=== PATIENT | female | born 1985 | race Caucasian/White ===

== ENCOUNTER 2017-05-21 11:11 | Emergency (ER) | payer OTHER ==
[~2017-05-21] VITALS: Ht 170.2 cm; Wt 124.7 kg
--- OUTSIDE RECORDS SUMMARY | 2017-05-21 11:16 | External Medical Summary Rpt ---
Author Author [employer] Organization [employer] Address Unknown Phone Unavailable Purpose Continuity of Care Document - through 2016
--- OUTSIDE RECORDS SUMMARY | 2017-05-21 11:16 | External Medical Summary Rpt ---
Author Author [facility] Address Unknown Phone [email or web address] Purpose Continuity of Care Document - through 2016
--- OUTSIDE RECORDS SUMMARY | 2017-05-21 11:16 | External Medical Summary Rpt ---
Author Author [facility] Address Unknown Phone Purpose Continuity of Care Document - through 2016
--- OUTSIDE RECORDS SUMMARY | 2017-05-21 11:17 | External Medical Summary Rpt ---
Author Author [facility] Garcia, [facility] [employer] Organization [employer] Address Unknown Phone Unavailable
--- OUTSIDE RECORDS SUMMARY | 2017-05-21 11:17 | External Medical Summary Rpt ---
Author Author , [facility] Address Unknown Phone [email or web address] Immunization Name Date Rout CVX Reac Dose Comm Prov Is Faci e tion ent ider Refu lity Give sed n Tdap 09-2 115 999 Hist H201 No H201 , 2-20 oric Adso 10 al rbed Info rmat ion - Sour ce Unsp ecif ied
--- OUTSIDE RECORDS SUMMARY | 2017-05-21 11:17 | External Medical Summary Rpt ---
Author Author , [facility] Address Unknown Phone [email or web address] Immunization Name Date Rout CVX Reac Dose Comm Prov Is Faci e tion ent ider Refu lity Give sed n Tdap 09-2 115 999 Hist H201 No H201 , 2-20 oric Adso 10 al rbed Info rmat ion - Sour ce Unsp ecif ied
--- NOTE | 2017-05-21 11:40 | Urgent Treatment Center Report ---
History of Present Issue Date/Time Seen by Provider 05/21/17 1122 Visit Reason Pt arrived:Walked Presenting Problem:PT C/O STOMACH CRAMPS, DIARRHEA FOR 4 DAYS. PT ADVISES SHE VOMITED THE FIRST DAY BUT HAS NOT VOMITED SINCE Location if Accident: Onset of symptoms date/time:/ or onset unknown for:MEDICAL HX UNKNOWN Have you (or family members/close friends) recently traveled outside the [place]? N If Yes, where/when: Have you had exposure to infectious disease within the past month? TB? Other? Specify: Source patient, RN notes reviewed Exam Limitations no limitations Comment Stomach cramps X 4 days. Has had watery diarrhea every 30 minutes. Vomited on the first day, but not since. Intermittent fever. No bloody stools. No family or personal history of IBD. No known contaminated food/water. No exposure to C diff ALLERGIES Coded Allergies: No Known Allergies (05/21/17) Home Medications Reported Medications No Known Home Medications History Medical History General CAD? No Angina: No SC: No Hypertension? No Hyperlipidemia? No CHF? No DVT? No PE? No COPD? No Asthma? No Anemia? No GERD? No Gastric ulcers? No GI Bleed? No Hernia? No Thyroid Problems? No Hypothyroidism? No CVA? No Seizures? No Diabetes? No Renal Insuffiency? No UTI? No Stones? No BPH? No GB Disease: No Nephritic Syndrome? No Asplenia? No Hepatitis? No Sickle Cell Disease? No Arthritis? No Migraines? No Cataracts? No Glaucoma? No MRSA? No HIV? No TB? No Anxiety? No Depression? No Cancer? No More? No Immunization HX DT/Tetanus 1-4 Years Ago Surgical Hx Previous Surgery?Y WISDOM Social History Smoking Hx Smoker: Never Smoker Tobacco: No Alcohol Alcohol: No Review of Systems All Other Systems Reviewed and Negative Gastrointestinal diarrhea, nausea, vomiting Physical Exam Vital Signs Vital Signs Date Time Temp Pulse Resp B/P Pulse O2 O2 Flow FiO2 Ox Delivery Rate 05/21 1119 97.8 115 16 151/91 98 General Appearance normal appearance, no apparent distress Ear, Nose, Throat hearing grossly normal, normal ENT inspection Respiratory Status No: respiratory distress, trachea midline, chest symmetrical. Lung Sounds bilateral: normal breath sounds, lungs clear. Cardiovascular normal exam, regular rate/rhythm, no peripheral edema, no gallop, no JVD, no murmur, no rub Gastrointestinal normal bowel sounds, normal exam, non tender Extremities non-tender, normal range of motion, normal inspection, normal capillary refill Neurologic alert, normal exam, oriented x 3 Mental status normal mood/affect Medical Decision Making LABS/Meds/Orders Pt receiving controlled substance in ED? No Results/Orders Laboratory Tests 05/21/17 1203: Sodium 138, Potassium 3.9, Chloride 103, Carbon Dioxide 24, BUN 12, Creatinine 1.2 H, Estimated Creat Clear 136, Estimated GFR (MDRD) 53 L, Glucose 133 H, Calcium 9.0, Total Bilirubin 0.7, AST 17, ALT 28, Alkaline Phosphatase 116, Total Protein 7.8, Albumin 4.0, Globulin 3.8 H, Albumin/Globulin Ratio 1.1 Current Medication Orders Sig/Dusty Start time Last Medication Dose Route Stop Time Status Admin Acetaminophen 650 MG ONCE ONE 05/21 1300 AC PO 05/21 1301 Acetaminophen 500 MG ONCE ONE 05/21 1245 CAN PO 05/21 1246 Orders Procedure Date/time Status CHEM 12 PROFILE 05/21 1200 Complete Unable to provide stool for diarrhe panel - given order for outpatient (LEXI RAMIREZ) Departure Departure Time of Disposition 1250 Disposition DC Home or Self Care(routine) Clinical Impression Primary Impression: Diarrhea Qualifiers: Diarrhea type: unspecified type Qualified Code: R19.7 - Diarrhea, unspecified Condition STABLE Referrals Rajeev Peres MD (Family) Patient Instructions DI for Diarrhea and Traveler's Diarrhea -- Adult Additional Instructions Clear liquids, return stool sample for diarrhea panel Discharge Counseling Counseled pt/family regarding diagnosis, test results, medications/RX, home care, follow up needs Prescriptions Current Visit Scripts No Known Home Medications at 1251
[2017-05-21 12:51] VITALS: BP 151/91
[2017-05-21 14:38] LABS: AEROMONAS NOT DETECTED (NOT DETECTE); ASTROVIRUS NOT DETECTED (NOT DETECTE); CYCLOSPORA CAYETANENSIS NOT DETECTED (NOT DETECTE); E COLI O157 NOT DETECTED (NOT DETECTE); ENTEROAGGREGATIVE E COLI NOT DETECTED (NOT DETECTE); ENTEROPATHOGENIC E COLI NOT DETECTED (NOT DETECTE); ENTEROTOXIGENIC E COLI NOT DETECTED (NOT DETECTE); NOROVIRUS NOT DETECTED (NOT DETECTE); SAPOVIRUS NOT DETECTED (NOT DETECTE); SHIGA-LIKE TOXIN PROD. E COLI NOT DETECTED (NOT DETECTE); SHIGELLA/ENTEROINVASIVE E COLI NOT DETECTED (NOT DETECTE); VIBRIO CHOLERAE NOT DETECTED (NOT DETECTE)
== END 2017-05-21 12:53 | disposition home or self-care (01) ==
LOC: UTC 11:11
PROVIDERS: Emergency Medicine; Physician Assistant
DX: R19.7 Diarrhea, unspecified (principal)